=== PATIENT | male | born 1950 | race Caucasian/White ===

== ENCOUNTER 2024-06-02 19:06 | Emergency (ER) | payer MEDICARE ==
[~2024-06-02] VITALS: Ht 182.9 cm; Wt 98.6 kg
[~2024-06-02 19:06] MED LIST: AMITRIPTYLINE H10 M1 PO; ASPIRIN 81M81 MG/TA2 PO; CANA100T PO; DIABETA 5MG5 MG/TAB PO; EFFEXOR XR75 MG/CAP PO; FENOGLIDE40 MG PO; GLUCOPHAGE1000 MG PO; HCTZ 25MG TAB25 MG PO; LEVEMIR SQ; LIPITOR 40MG TA40 MG PO; LYRICA 75MG CAP75 MG PO; MICARDIS40 MG PO; NATURAL POTASS595 MG PO; NORVASC 10MG10 MG PO; NOVOLOG FLEX100 U/ML SQ; PLAVIX 75MG TAB75 MG PO; PLETAL 100MG T100 MG PO
[2024-06-02 19:46] LABS: BASO # 0.1 K/mm3 (0.0-0.2); BASO % 0.6 % (0.0-2.0); EOS # 0.8 K/mm3 (0.0-0.7); EOS % 6.3 % (0.0-4.0); GRAN # 6.2 K/mm3 (1.4-6.5); GRAN % 50.2 % (42.2-75.2); HEMATOCRIT 47.1 % (42.0-52.0); LYMPH # 4.5 K/mm3 (1.2-3.4); LYMPH % 36.3 % (20.0-51.0); MEAN CELL VOLUME 94 fl (80.0-100.0); MEAN CORPUSCULAR HEMOGLOBIN 30 pg (27-31); MEAN CORPUSCULAR HGB CONC 32 g/dl (33.0-37.0); MEAN PLATELET VOLUME 10.5 fl (7.4-10.4); MONO # 0.8 K/mm3 (0.1-0.6); MONO % 6.3 % (1.7-9.3); PLATELET COUNT 172 K/mm3 (130-400)
[2024-06-02 19:59] LABS: INR 1.1 (0.8-3.0); PROTHROMBIN TIME 12.3 SECONDS (9.7-12.8)
[2024-06-02 20:02] LABS: ALANINE AMINOTRANSFERASE 38 U/L (0-55); ALBUMIN 3.8 g/dL (3.4-4.8); ALKALINE PHOSPHATASE 122 U/L (40-150); ANION GAP 16 mmol/L (7-16); AST,SGOT 27 U/L (5-34); BILIRUBIN,TOTAL 0.4 mg/dL (0.2-1.2); BLOOD UREA NITROGEN 45 mg/dL (8-26); CALCIUM 9.4 mg/dL (8.4-10.2); CHLORIDE 108 mEq/L (98-107); CREATININE, serum 1.62 mg/dL (0.72-1.25); GLUCOSE 91 mg/dL (70-99); POTASSIUM 4.7 mEq/L (3.5-4.5); SODIUM 144 mEq/L (136-145)
[2024-06-02] MEDS ORDERED: Iohexol 300 - 100 ML VIAL IV ONE (20:12)
[2024-06-02] MEDS ORDERED: NS 64 ML IV SCH (20:12)
[2024-06-02] MEDS ORDERED: Ondansetron 4 MG/2 ML VIAL IV ONE (20:15)
[2024-06-02 20:17] LABS: TROPONIN-I < 0.010 ng/mL (0.00-0.033)
[2024-06-02 21:41] LABS: URINE APPEARANCE CLEAR (CLEAR/HAZY); URINE BLOOD NEGATIVE (NEGATIVE); URINE COLOR YELLOW (YELLOW); URINE GLUCOSE 3+ (NEGATIVE); URINE KETONE NEGATIVE (NEGATIVE); URINE NITRATE NEGATIVE (NEGATIVE); URINE PROTEIN(semi-quant) NEGATIVE (NEGATIVE); URINE UROBILINOGEN 0.2 E.U/dL (0.2-1.0)
[2024-06-02 22:00] LABS: COLLECTION METHOD CLEAN CATCH
[2024-06-02] MEDS ORDERED: NS 1,000 ML IV ONE (22:15)
[2024-06-02] MEDS ORDERED: Acetaminophen 325 MG TAB PO ONE (22:30)
[2024-06-02] MEDS ORDERED: Atorvastatin 80 MG TAB PO ONE (23:45)
[2024-06-02] MEDS ORDERED: Ketorolac 15 MG/ML VIAL IV ONE (23:45)
[2024-06-02] MEDS ORDERED: diphenhydrAMINE 50 MG/ML 1 ML VIAL IV ONE (23:45)
[2024-06-03 02:27] VITALS: BP 144/76; PULSE 74; TEMP 98.3
== END 2024-06-03 02:27 | disposition short-term general hospital (02) ==
LOC: COL.ER 19:06
PROVIDERS: Nurse Practitioner Primary Care
DX: I65.23 Occlusion and stenosis of bilateral carotid arteries (principal); R51.9 Headache, unspecified; I10 Essential (primary) hypertension; Z86.73 Personal history of transient ischemic attack (TIA), and cerebral infarction without residual deficits
CPT/HCPCS: J0780; J1200; J1885; J2405; J7030; Q9967